=== PATIENT | female | born 1970 | race Caucasian/White ===

== ENCOUNTER 2016-12-24 12:48 | Emergency (ER) | payer OTHER ==
[~2016-12-24 12:48] MED LIST: 'TENORMIN50 MG; 'TENORMIN50 MG PO; ACYCLOVIR400 MG PO; ADDERALL20 MG PO; ALBUTEROL0.09 MG/A1 INH; AMOXICILLIN500 M2 PO; ANAPROX DS550 MG PO; ATARAX25 MG PO; ATENOLOL25 MG PO; ATENOLOL50 MG; ATENOLOL50 MG PO; AUGMENTIN 875 M1 TAB PO; AUGMENTIN 875875 MG PO; BENADRYL25 MG PO; BRISDELLE PO; CEPHALEXIN500 M1 PO; CLARITIN10 MG PO; COU PO; DEMEROL50 M1 PO; DEXTROAMPH SACC20 M1 PO; DILANTIN100 MG PO; DILANTIN30 MG PO; ELAVIL25 MG PO; ELAVIL50 MG; ELIMITE 5%60 GM T; FIORICET 325 MG1 TAB PO; Fioricet 325 MG1 TAB PO; HYDROCODONE BIT1 T11 PO; IMITREX100 MG PO; IMITREX25 M1 PO; KEFLEX500 MG PO; LAMICTAL100 MG PO; LAMICTAL200 MG; LAMICTAL200 MG PO; LORAZEPAM0.5 MG PO; MEDROL DOSEPAK4 MG PO; MOTRIN600 MG PO; MOTRIN800 MG; MOTRIN800 MG PO; NAPROSYN500 MG PO; PERCOCET 325 MG1 TA7; PREDNICOT20 MG PO; PREDNISONE10 MG PO; PREDNISONE20 M1 PO; PREDNISONE20 MG PO; PRILOSEC20 M1 PO; PRILOSEC20 MG; PRILOSEC20 MG PO; PROZAC; PROZAC40 MG PO; ROBAXIN750 MG PO; SEPTRA DS 800 M1 TAB PO; SEROQUEL XR300 MG; SEROQUEL25 MG PO; SEROQUEL300 MG PO; TENORMIN25 MG PO; TOPAMAX25 M1 PO; TOPAMAX50 MG PO; TRAMADOL HCL50 MG PO; VALIUM10 MG; VALIUM10 MG PO; VALIUM5 MG PO; VENTOLIN H0.09 MG/AC INH; VIBRAMYCIN100 MG PO; VISTARIL50 MG; VITAMIN D2000 IU PO; VOLTAREN50 M1; VOLTAREN50 M1 PO; VOLTAREN50 MG PO; XANAX0.25 MG PO; XANAX0.5 MG PO; XANAX1 MG; XANAX1 MG PO; ZITHROMAX250 MG PO; ZOFRAN4 MG PO; [UNRECOGNIZED DRUG - OTHER] PO; [UNRECOGNIZED DRUG - OTHER] PO; [UNRECOGNIZED DRUG - OTHER] PO
== END 2016-12-24 13:56 | disposition left against medical advice (07) ==
LOC: ED 12:48
DX: L55.9 Sunburn, unspecified (principal); Z53.21 Procedure and treatment not carried out due to patient leaving prior to being seen by health care provider

== ENCOUNTER 2016-12-26 15:38 | Emergency (ER) | payer OTHER ==
[~2016-12-26] VITALS: Ht 160 cm; Wt 72.6 kg
[2016-12-26] MEDS ORDERED: PROZAC10 MG PO (15:51)
[2016-12-26] MEDS ORDERED: MEDROL DOSEPAK4 MG PO (17:35)
== END 2016-12-26 16:34 | disposition home or self-care (01) ==
LOC: ED 15:38
DX: S20.212A Contusion of left front wall of thorax, initial encounter (principal); L57.8 Other skin changes due to chronic exposure to nonionizing radiation; F17.200 Nicotine dependence, unspecified, uncomplicated; Z88.6 Allergy status to analgesic agent; Z91.018 Allergy to other foods; Z79.899 Other long term (current) drug therapy; X58.XXXA Exposure to other specified factors, initial encounter; Y93.89 Activity, other specified; Y92.89 Other specified places as the place of occurrence of the external cause; Y99.8 Other external cause status

== ENCOUNTER 2017-02-15 00:07 | Emergency (ER) | payer OTHER ==
[~2017-02-15] VITALS: Ht 162.5 cm; Wt 72.6 kg
[~2017-02-15 00:07] MED LIST changes: +PROZAC10 MG PO
[2017-02-15] MEDS ORDERED: CEPHALEXIN500 M1 PO (01:03)
== END 2017-02-15 01:32 | disposition left against medical advice (07) ==
LOC: ED 00:07
DX: S61.211A Laceration without foreign body of left index finger without damage to nail, initial encounter (principal); F17.200 Nicotine dependence, unspecified, uncomplicated; Z88.6 Allergy status to analgesic agent; Z91.018 Allergy to other foods; Z90.49 Acquired absence of other specified parts of digestive tract; W45.8XXA Other foreign body or object entering through skin, initial encounter; Y93.89 Activity, other specified; Y92.9 Unspecified place or not applicable; Y99.9 Unspecified external cause status

== ENCOUNTER → 2017-04-30 | Outpatient (CLI) | payer OTHER | END | disposition home or self-care (01) | LOC: US 13:11 | DX: M79.605 Pain in left leg (principal) ==

== ENCOUNTER 2017-05-18 19:59 | Emergency (ER) | payer OTHER ==
[~2017-05-18] VITALS: Ht 162.5 cm; Wt 74.8 kg
[2017-05-18 21:03] LABS: BASO # 0.1 10*3/uL (0.0-0.1); BASO % 0.6 % (0.0-1.0); EOS # 0.3 10*3/uL (0.0-0.4); EOS % 2.2 % (1.0-4.0); HEMATOCRIT 43.9 % (37.0-47.0); HEMOGLOBIN 14.8 g/dl (12.0-16.0); LYMPH # 3.8 10*3/uL (1.3-4.4); LYMPH % 24.5 % (27.0-41.0); MEAN CELL VOLUME 94.8 fl (81.0-99.0); MEAN CORPUSCULAR HGB CONC 33.7 g/dl (33.0-37.0); MEAN PLATELET VOLUME 10.8 fl (9.6-12.3); MONO # 0.5 10*3/uL (0.1-1.0); MONO % 3.4 % (3.0-9.0); NEUT # 10.7 10*3/uL (2.3-7.9); PLATELET COUNT AUTOMATED 294 10*3/uL (130-400); RED BLOOD COUNT 4.63 10*6/uL (4.10-5.10); RED CELL DISTRI WIDTH 13.2 % (0-14.5); WHITE BLOOD COUNT 15.5 10*3/uL (4.8-10.8)
[2017-05-18 21:19] LABS: ALBUMIN 4.4 gm/dl (3.1-4.5); ALKALINE PHOSPHATASE 93 U/L (45-117); BUN 15 mg/dl (7-24); CHLORIDE 104 mmol/L (98-107); CREATININE 0.88 mg/dL (0.55-1.02); POTASSIUM 3.7 mmol/L (3.5-5.1); SGOT/AST 9 IU/L (3-35); SGPT/ALT 20 U/L (12-78); SODIUM 141 mmol/L (136-145); TOTAL PROTEIN 7.5 gm/dL (6.4-8.2)
[2017-05-18] MEDS ORDERED: CYCLOBENZAPRINE10 MG PO (21:28)
== END 2017-05-18 21:45 | disposition home or self-care (01) ==
LOC: ED 19:59
PROVIDERS: Student in an Organized Health Care Education/Training Program
DX: M79.605 Pain in left leg (principal); F17.200 Nicotine dependence, unspecified, uncomplicated; Z88.5 Allergy status to narcotic agent; Z88.8 Allergy status to other drugs, medicaments and biological substances; Z79.899 Other long term (current) drug therapy; Z98.51 Tubal ligation status

== ENCOUNTER 2018-01-13 18:15 | Emergency (ER) | payer OTHER ==
[~2018-01-13] VITALS: Ht 160 cm; Wt 79.4 kg
[~2018-01-13 18:15] MED LIST changes: +CYCLOBENZAPRINE10 MG PO
[2018-01-13] MEDS ORDERED: CYCLOBENZAPRINE10 MG PO (19:56)
[2018-01-13] MEDS ORDERED: NAPROSYN500 MG PO (19:56)
== END 2018-01-13 20:07 | disposition home or self-care (01) ==
LOC: ED 18:15
DX: S39.011A Strain of muscle, fascia and tendon of abdomen, initial encounter (principal); S96.912A Strain of unspecified muscle and tendon at ankle and foot level, left foot, initial encounter; F17.200 Nicotine dependence, unspecified, uncomplicated; Z98.890 Other specified postprocedural states; Z98.51 Tubal ligation status; Z79.899 Other long term (current) drug therapy; Z88.5 Allergy status to narcotic agent; Z88.6 Allergy status to analgesic agent; Z91.018 Allergy to other foods; W18.49XA Other slipping, tripping and stumbling without falling, initial encounter; Y93.89 Activity, other specified; Y92.69 Other specified industrial and construction area as the place of occurrence of the external cause; Y99.9 Unspecified external cause status

== ENCOUNTER 2018-01-30 19:07 | Emergency (ER) | payer OTHER ==
[2018-03-17] MEDS ORDERED: CYCLOBENZAPRINE10 MG PO (10:01)
[2018-03-17] MEDS ORDERED: NAPROSYN500 MG PO (10:01)
== END 2018-01-30 19:28 | disposition home or self-care (01) ==
LOC: ED 19:07
DX: R51 Headache (principal); F17.200 Nicotine dependence, unspecified, uncomplicated; Z98.890 Other specified postprocedural states; Z98.51 Tubal ligation status; Z79.899 Other long term (current) drug therapy; Z88.5 Allergy status to narcotic agent; Z88.6 Allergy status to analgesic agent; Z91.018 Allergy to other foods

== ENCOUNTER 2018-04-05 17:53 | Emergency (ER) | payer OTHER ==
[~2018-04-05] VITALS: Ht 160 cm; Wt 74.8 kg
[2018-04-05] MEDS ORDERED: NAPROSYN500 MG PO (19:15)
[2018-04-05] MEDS ORDERED: CHLORZOXAZONE500 M2 PO (19:15)
== END 2018-04-05 20:36 | disposition home or self-care (01) ==
LOC: ED 17:53
DX: S20.211A Contusion of right front wall of thorax, initial encounter (principal); S90.01XA Contusion of right ankle, initial encounter; S60.012A Contusion of left thumb without damage to nail, initial encounter; S70.12XA Contusion of left thigh, initial encounter; F41.9 Anxiety disorder, unspecified; F31.9 Bipolar disorder, unspecified; K21.9 Gastro-esophageal reflux disease without esophagitis; I10 Essential (primary) hypertension; G43.909 Migraine, unspecified, not intractable, without status migrainosus; G40.909 Epilepsy, unspecified, not intractable, without status epilepticus; Z98.51 Tubal ligation status; Z88.6 Allergy status to analgesic agent; Z88.5 Allergy status to narcotic agent; Z91.018 Allergy to other foods; Z79.899 Other long term (current) drug therapy; V89.2XXA Person injured in unspecified motor-vehicle accident, traffic, initial encounter; Y93.89 Activity, other specified; Y92.89 Other specified places as the place of occurrence of the external cause; Y99.8 Other external cause status

== ENCOUNTER 2018-05-13 18:25 | Emergency (ER) | payer OTHER ==
[~2018-05-13] VITALS: Ht 160 cm; Wt 79.4 kg
[~2018-05-13 18:25] MED LIST changes: +CHLORZOXAZONE500 M2 PO
[2018-05-13] MEDS ORDERED: SEPTDS PO (18:52)
[2018-05-13] MEDS ORDERED: CEPHALEXIN500 M1 PO (18:52)
== END 2018-05-13 18:54 | disposition home or self-care (01) ==
LOC: ED
DX: S61.002A Unspecified open wound of left thumb without damage to nail, initial encounter (principal); S61.201A Unspecified open wound of left index finger without damage to nail, initial encounter; S61.203A Unspecified open wound of left middle finger without damage to nail, initial encounter; L08.9 Local infection of the skin and subcutaneous tissue, unspecified; J45.909 Unspecified asthma, uncomplicated; K21.9 Gastro-esophageal reflux disease without esophagitis; I10 Essential (primary) hypertension; G43.909 Migraine, unspecified, not intractable, without status migrainosus; F17.200 Nicotine dependence, unspecified, uncomplicated; Z88.5 Allergy status to narcotic agent; Z91.018 Allergy to other foods; Z88.6 Allergy status to analgesic agent; Z79.1 Long term (current) use of non-steroidal anti-inflammatories (NSAID); Z79.899 Other long term (current) drug therapy; X58.XXXA Exposure to other specified factors, initial encounter; Y93.89 Activity, other specified; Y92.89 Other specified places as the place of occurrence of the external cause; Y99.8 Other external cause status

== ENCOUNTER 2018-08-23 12:55 | Emergency (ER) | payer OTHER ==
[~2018-08-23 12:55] MED LIST changes: +SEPTDS PO
[2018-08-23 13:37] LABS: BASO # 0.1 10*3/uL (0.0-0.1); BASO % 0.7 % (0.0-1.0); EOS # 0.4 10*3/uL (0.0-0.4); EOS % 3.5 % (1.0-4.0); HEMOGLOBIN 15.1 g/dl (12.0-16.0); LYMPH # 4.1 10*3/uL (1.3-4.4); LYMPH % 33.2 % (27.0-41.0); MEAN CELL VOLUME 95.9 fl (81.0-99.0); MEAN CORPUSCULAR HGB 32.2 pg (27.0-31.0); MEAN CORPUSCULAR HGB CONC 33.6 g/dl (33.0-37.0); MEAN PLATELET VOLUME 10.9 fl (9.6-12.3); MONO # 0.5 10*3/uL (0.1-1.0); MONO % 4.1 % (3.0-9.0); NEUT # 7.1 10*3/uL (2.3-7.9); NEUT % 58.1 % (47.0-73.0); PLATELET COUNT AUTOMATED 273 10*3/uL (130-400); RED BLOOD COUNT 4.69 10*6/uL (4.10-5.10); RED CELL DISTRI WIDTH 13.3 % (0-14.5); WHITE BLOOD COUNT 12.3 10*3/uL (4.8-10.8)
[2018-08-23 13:51] LABS: ALBUMIN 3.5 gm/dl (3.1-4.5); ALKALINE PHOSPHATASE 90 U/L (45-117); BUN 15 mg/dl (7-24); CHLORIDE 109 mmol/L (98-107); CREATININE 0.96 mg/dL (0.55-1.02); POTASSIUM 3.2 mmol/L (3.5-5.1); SGOT/AST 9 IU/L (3-35); SGPT/ALT 24 U/L (12-78); SODIUM 142 mmol/L (136-145); TOTAL PROTEIN 6.9 gm/dL (6.4-8.2)
[2018-08-23] MEDS ORDERED: K-TAB20 MEQ PO (15:02)
[2018-08-23] MEDS ORDERED: MUCINEX DM 30/61 TAB PO (15:02)
== END 2018-08-23 15:05 | disposition home or self-care (01) ==
LOC: ED 12:55
PROVIDERS: Emergency Medicine
DX: J06.9 Acute upper respiratory infection, unspecified (principal); E87.6 Hypokalemia; R19.7 Diarrhea, unspecified; R11.2 Nausea with vomiting, unspecified; R63.0 Anorexia; R10.9 Unspecified abdominal pain; J45.909 Unspecified asthma, uncomplicated; K21.9 Gastro-esophageal reflux disease without esophagitis; I10 Essential (primary) hypertension; G43.909 Migraine, unspecified, not intractable, without status migrainosus; G40.909 Epilepsy, unspecified, not intractable, without status epilepticus; F17.210 Nicotine dependence, cigarettes, uncomplicated; Z79.899 Other long term (current) drug therapy; Z88.6 Allergy status to analgesic agent; Z91.018 Allergy to other foods; Z90.710 Acquired absence of both cervix and uterus

== ENCOUNTER → 2018-10-16 | Outpatient (CLI) | payer OTHER ==
[~2018-10-16] MED LIST changes: +K-TAB20 MEQ PO; +MUCINEX DM 30/61 TAB PO
== END | disposition home or self-care (01) ==
LOC: US 09:43
DX: Z12.31 Encounter for screening mammogram for malignant neoplasm of breast (principal); R10.2 Pelvic and perineal pain

== ENCOUNTER → 2019-03-17 | Outpatient (CLI) | payer OTHER | END | disposition home or self-care (01) | LOC: ORTHO 13:26 | DX: S82.62XA Displaced fracture of lateral malleolus of left fibula, initial encounter for closed fracture (principal); X58.XXXA Exposure to other specified factors, initial encounter; Y93.89 Activity, other specified; Y92.89 Other specified places as the place of occurrence of the external cause; Y99.8 Other external cause status ==

== ENCOUNTER 2019-08-20 06:04 | Emergency (ER) | payer OTHER ==
[~2019-08-20] VITALS: Ht 160 cm; Wt 88.5 kg
[2019-08-20] MEDS ORDERED: IBU800 MG PO (06:50)
[2019-08-20] MEDS ORDERED: KETOROLAC10 MG PO (06:50)
== END 2019-08-20 07:02 | disposition home or self-care (01) ==
LOC: ED 06:04
DX: S52.532A Colles' fracture of left radius, initial encounter for closed fracture (principal); S52.612A Displaced fracture of left ulna styloid process, initial encounter for closed fracture; J45.909 Unspecified asthma, uncomplicated; K21.9 Gastro-esophageal reflux disease without esophagitis; I10 Essential (primary) hypertension; G43.909 Migraine, unspecified, not intractable, without status migrainosus; G40.909 Epilepsy, unspecified, not intractable, without status epilepticus; F17.200 Nicotine dependence, unspecified, uncomplicated; Z79.899 Other long term (current) drug therapy; Z88.6 Allergy status to analgesic agent; Z91.018 Allergy to other foods; X50.0XXA Overexertion from strenuous movement or load, initial encounter; Y93.89 Activity, other specified; Y92.89 Other specified places as the place of occurrence of the external cause; Y99.8 Other external cause status

== ENCOUNTER 2019-09-02 23:06 | Emergency (ER) | payer OTHER ==
[~2019-09-02] VITALS: Wt 83.9 kg
[~2019-09-02 23:06] MED LIST changes: +IBU800 MG PO; +KETOROLAC10 MG PO
== END 2019-09-02 23:51 | disposition home or self-care (01) ==
LOC: ED 23:06
DX: G89.18 Other acute postprocedural pain (principal); M25.532 Pain in left wrist; G43.909 Migraine, unspecified, not intractable, without status migrainosus; G40.909 Epilepsy, unspecified, not intractable, without status epilepticus; F17.200 Nicotine dependence, unspecified, uncomplicated; Z91.018 Allergy to other foods; Z88.8 Allergy status to other drugs, medicaments and biological substances; Z88.5 Allergy status to narcotic agent; Z79.899 Other long term (current) drug therapy

== ENCOUNTER 2019-09-04 21:22 | Emergency (ER) | payer OTHER ==
[~2019-09-04] VITALS: Ht 160 cm; Wt 83.9 kg
== END 2019-09-04 22:56 | disposition home or self-care (01) ==
LOC: ED 21:22
DX: S52.532D Colles' fracture of left radius, subsequent encounter for closed fracture with routine healing (principal); R20.2 Paresthesia of skin; G43.909 Migraine, unspecified, not intractable, without status migrainosus; G40.909 Epilepsy, unspecified, not intractable, without status epilepticus; F17.200 Nicotine dependence, unspecified, uncomplicated; Z48.01 Encounter for change or removal of surgical wound dressing; Z88.5 Allergy status to narcotic agent; Z91.018 Allergy to other foods; Z88.8 Allergy status to other drugs, medicaments and biological substances; Z79.899 Other long term (current) drug therapy; X50.0XXD Overexertion from strenuous movement or load, subsequent encounter

== ENCOUNTER 2019-09-09 14:59 | Emergency (ER) | payer OTHER ==
[~2019-09-09] VITALS: Ht 160 cm; Wt 83.9 kg
[2019-09-09] MEDS ORDERED: Motrin,Rufen800 MG PO (15:47)
== END 2019-09-09 16:39 | disposition home or self-care (01) ==
LOC: ED 14:59
DX: G89.18 Other acute postprocedural pain (principal); F17.200 Nicotine dependence, unspecified, uncomplicated; Z88.6 Allergy status to analgesic agent; Z79.899 Other long term (current) drug therapy

== ENCOUNTER 2020-08-25 10:46 | Emergency (ER) | payer OTHER ==
[~2020-08-25] VITALS: Wt 86.2 kg
[~2020-08-25 10:46] MED LIST changes: +Motrin,Rufen800 MG PO
== END 2020-08-25 12:17 | disposition home or self-care (01) ==
LOC: ED 10:46
DX: S99.911A Unspecified injury of right ankle, initial encounter (principal); J45.909 Unspecified asthma, uncomplicated; F41.9 Anxiety disorder, unspecified; F31.9 Bipolar disorder, unspecified; K21.9 Gastro-esophageal reflux disease without esophagitis; I10 Essential (primary) hypertension; G43.909 Migraine, unspecified, not intractable, without status migrainosus; G40.909 Epilepsy, unspecified, not intractable, without status epilepticus; F17.200 Nicotine dependence, unspecified, uncomplicated; Z98.890 Other specified postprocedural states; Z98.51 Tubal ligation status; Z88.5 Allergy status to narcotic agent; Z91.018 Allergy to other foods; Z88.8 Allergy status to other drugs, medicaments and biological substances; Z79.899 Other long term (current) drug therapy; W19.XXXA Unspecified fall, initial encounter; Y93.89 Activity, other specified; Y92.89 Other specified places as the place of occurrence of the external cause; Y99.8 Other external cause status

== ENCOUNTER 2020-09-11 19:54 | Emergency (ER) | payer OTHER ==
[~2020-09-11] VITALS: Ht 162.5 cm; Wt 86.2 kg
[2020-09-11 20:46] LABS: HEMATOCRIT 46.9 % (37.0-47.0); MEAN CELL VOLUME 98.3 fl (81.0-99.0); MEAN CORPUSCULAR HGB 31.4 pg (27.0-31.0); MEAN PLATELET VOLUME 10.7 fl (9.6-12.3); PLATELET COUNT AUTOMATED 269 10*3/uL (130-400); RED BLOOD COUNT 4.77 10*6/uL (4.10-5.10); RED CELL DISTRI WIDTH 14.1 % (0-14.5); WHITE BLOOD COUNT 12.2 10*3/uL (4.8-10.8)
[2020-09-11 21:00] LABS: ALBUMIN 3.6 gm/dl (3.1-4.5); ALKALINE PHOSPHATASE 105 U/L (45-117); BUN 14 mg/dl (7-24); CHLORIDE 110 mmol/L (98-107); CREATININE 0.86 mg/dL (0.55-1.02); POTASSIUM 3.6 mmol/L (3.5-5.1); SGOT/AST 4 IU/L (3-35); SGPT/ALT 16 U/L (12-78); SODIUM 142 mmol/L (136-145); TOTAL PROTEIN 6.8 gm/dL (6.4-8.2)
[2020-09-11 21:01] LABS: BASOPHILS 1 % (0-1); PLATELET SUFFICIENCY NORMAL (NORMAL); TOTAL CELLS COUNTED 100 #CELLS
[2020-09-11 21:07] LABS: TROPONIN I < 0.015 ng/ml (<0.045)
== END 2020-09-11 22:02 | disposition home or self-care (01) ==
LOC: ED 19:54
PROVIDERS: Internal Medicine
DX: R07.89 Other chest pain (principal); D72.829 Elevated white blood cell count, unspecified; G43.909 Migraine, unspecified, not intractable, without status migrainosus; Z79.899 Other long term (current) drug therapy

== ENCOUNTER 2022-01-26 10:05 | Emergency (ER) | payer OTHER | END 2022-01-26 12:48 | disposition left against medical advice (07) | LOC: ED 10:05 | DX: S02.5XXA Fracture of tooth (traumatic), initial encounter for closed fracture (principal); F17.200 Nicotine dependence, unspecified, uncomplicated; Z88.8 Allergy status to other drugs, medicaments and biological substances; Z79.899 Other long term (current) drug therapy; Z98.51 Tubal ligation status; Z98.890 Other specified postprocedural states; X58.XXXA Exposure to other specified factors, initial encounter; Y93.89 Activity, other specified; Y92.89 Other specified places as the place of occurrence of the external cause; Y99.8 Other external cause status ==

== ENCOUNTER 2024-06-26 17:02 | Emergency (ER) | payer OTHER ==
[~2024-06-26] VITALS: Ht 162.5 cm; Wt 86.2 kg
== END 2024-06-26 18:32 | disposition home or self-care (01) ==
LOC: ED 17:02
DX: S93.401A Sprain of unspecified ligament of right ankle, initial encounter (principal); S86.911A Strain of unspecified muscle(s) and tendon(s) at lower leg level, right leg, initial encounter; S09.8XXA Other specified injuries of head, initial encounter; S80.211A Abrasion, right knee, initial encounter; M25.551 Pain in right hip; G43.909 Migraine, unspecified, not intractable, without status migrainosus; F17.200 Nicotine dependence, unspecified, uncomplicated; Z88.5 Allergy status to narcotic agent; Z91.018 Allergy to other foods; Z98.890 Other specified postprocedural states; W20.8XXA Other cause of strike by thrown, projected or falling object, initial encounter; Y93.89 Activity, other specified; Y92.009 Unspecified place in unspecified non-institutional (private) residence as the place of occurrence of the external cause; Y99.8 Other external cause status

== ENCOUNTER → 2025-02-11 | Outpatient (CLI) | payer OTHER | END | disposition home or self-care (01) | LOC: CARD 11:05 | PROVIDERS: ATTEND Internal Medicine | DX: G43.909 Migraine, unspecified, not intractable, without status migrainosus (principal); R55 Syncope and collapse ==

== ENCOUNTER 2025-04-01 20:52 | Emergency (ER) | payer OTHER ==
[~2025-04-01] VITALS: Ht 162.6 cm; Wt 89.8 kg
[2025-04-01] MEDS ORDERED: LISSAMINE GREEN 1.5 MG STRIP OP ONE (23:35)
[2025-04-02] MEDS ORDERED: GABAPENTIN100 M2 PO (10:41)
[2025-04-02] MEDS ORDERED: RIZATRIPTAN10 M1 PO (10:41)
[2025-04-02] MEDS ORDERED: CIPROFLOXACIN2.5 M1 OPH (11:00)
== END 2025-04-01 23:48 | disposition left against medical advice (07) ==
LOC: ED 20:52
DX: H57.11 Ocular pain, right eye (principal); H57.89 Other specified disorders of eye and adnexa; F17.200 Nicotine dependence, unspecified, uncomplicated; Z88.5 Allergy status to narcotic agent; Z91.018 Allergy to other foods; Z88.8 Allergy status to other drugs, medicaments and biological substances; Z79.899 Other long term (current) drug therapy; Z98.890 Other specified postprocedural states; Z53.29 Procedure and treatment not carried out because of patient's decision for other reasons

== ENCOUNTER 2025-04-02 10:36 | Emergency (ER) | payer OTHER ==
[~2025-04-02] VITALS: Ht 162.5 cm; Wt 89.8 kg
[2025-04-02] MEDS ORDERED: RIZATRIPTAN10 M1 PO (10:41)
[2025-04-02] MEDS ORDERED: GABAPENTIN100 M2 PO (10:41)
[2025-04-02] MEDS ORDERED: CIPROFLOXACIN2.5 M1 OPH (11:00)
== END 2025-04-02 11:16 | disposition home or self-care (01) ==
LOC: ED 10:36
DX: H10.9 Unspecified conjunctivitis (principal); G43.909 Migraine, unspecified, not intractable, without status migrainosus; Z88.5 Allergy status to narcotic agent; Z91.018 Allergy to other foods; Z98.890 Other specified postprocedural states